=== PATIENT | male | born 1985 | race Hispanic/Latino ===

== ENCOUNTER 2022-12-29 13:13 | Emergency (ER) | payer OTHER ==
[2022-12-29] MEDS ORDERED: Lidocaine 1% w/Epinephrine 1:200K 30 ML VIAL ONE (14:58)
== END 2022-12-29 17:34 | disposition home or self-care (01) ==
LOC: CSHERS 13:13
DX: L02.212 Cutaneous abscess of back [any part, except buttock and flank] (principal); L72.3 Sebaceous cyst
CPT/HCPCS: 10060